=== PATIENT | female | born 1940 | race Native Hawaiian/Other Pacific Islander ===

== ENCOUNTER 2017-12-08 19:26 | Emergency (ER) | payer MEDICARE, OTHER ==
[2017-12-08] MEDS ORDERED: Albuterol-Ipratrop 3 mg / 0.5 (3 ml) UD IH STA (20:13)
[2017-12-08] MEDS ORDERED: Albuterol-Ipratrop 3 mg / 0.5 (3 ml) UD ONE (20:44)
[2017-12-08 21:09] LABS: BASO # 0.1 K/uL (0.0-0.2); BASO % 0.9 % (0.0-2.0); EOS % 0.1 % (0.0-4.0); HEMOGLOBIN 14.2 g/dL (11.0-16.0); LYMPH # 1.8 K/uL (1.0-4.3); LYMPH % 13.5 % (20.0-40.0); MEAN CELL VOLUME 86.4 fL (81.0-99.0); MEAN CORPUSCULAR HEMOGLOBIN 29.4 pg (27.0-31.0); MEAN PLATELET VOLUME 7.6 fL (7.2-11.7); MONO # 1.4 K/uL (0.0-0.8); MONO % 10.6 % (0.0-10.0); NEUT # 9.9 K/uL (1.8-7.0); NEUT % 74.9 % (50.0-75.0); NRBC % 0.1 % (0.0-2.0); RBC 4.82 Mil/uL (3.80-5.20); RED CELL DISTRIBUTION WIDTH 14.1 % (11.5-14.5)
[2017-12-08 21:12] LABS: WHITE BLOOD COUNT 13.2 K/uL (4.8-10.8)
[2017-12-08 21:21] LABS: ALBUMIN 4.2 g/dL (3.5-5.0); ALT/SGPT 67 U/L (9-52); AST/SGOT 56 U/L (14-36); BLOOD UREA NITROGEN 14 mg/dL (7-17); GFR AFRICAN-AMERICAN > 60; GFR NON-AFRICAN AMERICAN > 60; SQUAMOUS EPITHIAL 8 /hpf (0-5); URINE BACTERIA RARE (<OCC); URINE BILIRUBIN NEGATIVE (NEGATIVE); URINE BLOOD 1+ (NEGATIVE); URINE CLARITY Hazy (Clear); URINE COLOR Yellow (YELLOW); URINE GLUCOSE (UA) NORMAL (Normal); URINE LEUKOCYTE ESTERASE TRACE Leu/uL (Negative); URINE NITRATE NEGATIVE (NEGATIVE); URINE PROTEIN 1+ mg/dL (NEGATIVE); URINE UROBILINOGEN NORMAL mg/dL (0.2-1.0)
[2017-12-08 21:37] LABS: FREE T4 0.77 ng/dL (0.78-2.19)
[2017-12-08] MEDS ORDERED: Sodium Chloride 0.9% 500 ML IV ONE (21:55)
--- NOTE | 2017-12-08 22:10 | C.PDOC ---
Time Seen by Provider: 12/08/17 20:02 Chief Complaint (Nursing): Flu-like Symptoms History Per: Patient, Family Onset/Duration Of Symptoms: Days (2) Current Symptoms Are (Timing): Still Present Associated Symptoms: Fever, Cough, Nasal Congestion Severity: Moderate Additional History Per: Prior Records Past Medical History Reviewed: Historical Data, Nursing Documentation, Vital Signs Vital Signs: Last Vital Signs Temp 99.9 F H 12/08/17 19:46 Pulse 91 H 12/08/17 19:46 Resp 16 12/08/17 19:46 BP 155/70 H 12/08/17 19:46 Pulse Ox 94 L 12/08/17 19:46 - Medical History PMH: Diabetes, Hypercholesterolemia, Hyperthyroidism Family History: States: Unknown Family Hx - Social History Hx Tobacco Use: No Hx Alcohol Use: No Hx Substance Use: No - Immunization History Hx Tetanus Toxoid Vaccination: Yes Hx Influenza Vaccination: Yes Hx Pneumococcal Vaccination: Yes Review Of Systems Except As Marked, All Systems Reviewed And Found Negative. Constitutional: Positive for: Fever, Malaise ENT: Positive for: Nose Congestion, Other (Decreased hearing from left ear for years). Negative for: Ear Pain, Ear Discharge Cardiovascular: Negative for: Chest Pain Respiratory: Positive for: Cough. Negative for: Shortness of Breath, Hemoptysis Gastrointestinal: Negative for: Vomiting, Abdominal Pain Genitourinary: Negative for: Dysuria Musculoskeletal: Negative for: Neck Pain Skin: Negative for: Rash Neurological: Positive for: Headache. Negative for: Weakness, Numbness, Seizures, Altered Mental Status Physical Exam - Physical Exam Appears: Non-toxic, No Acute Distress Skin: Normal Color, Warm, Dry, No Rash Head: Atraumatic, Normacephalic Eye(s): bilateral: Normal Inspection, PERRL, EOMI Ear(s): Left: TM Dull (chronic abnormality of TM), Right: Normal Oral Mucosa: Moist, No Drooling, No Trismus Throat: Erythema, No Exudate, No Drooling, No Mass Neck: Normal ROM, Supple Cardiovascular: Rhythm Regular Respiratory: Normal Breath Sounds, No Accessory Muscle Use Gastrointestinal/Abdominal: Soft, No Tenderness Back: No CVA Tenderness Extremity: Normal ROM, No Pedal Edema, No Calf Tenderness Neurological/Psych: Oriented x3, Normal Speech, Normal Motor, Normal Sensation ED Course And Treatment - Laboratory Results Result Diagrams: 12/08/17 21:04 12/08/17 21:04 Interpretation Of Abnormal: Flu A positive O2 Sat by Pulse Oximetry: 96 (on RA) Pulse Ox Interpretation: Normal - Radiology CXR: Interpreted by Me, Viewed By Me CXR Interpretation: Yes: No Acute Disease Reassessment Condition: Improved Progress - Interventions Interventions:: Observation, Intravenous fluid - Medications Administered Oral: Acetaminophen, Other (Tamiflu) Inhaled nebulized: Anticholinergic, Beta-2 agonist - Data Reviewed Data Reviewed: Lab, Diagnostic imaging, Old records - Patient Status Patient status: Mostly improved - Continuity of Care Discussed patient case with:: Patient, Family-HIPPA compliant, ED Nurse, PMD - Patient Plan Patient Plan: Discharge, F/U with PCP, Continue present meds Disposition Discussed With : Gómez Johnson (PMD) Comment: He agrees with discharge home and will see pt in his office this week. Doctor Will See Patient In The: Office Counseled Patient/Family Regarding: Studies Performed, Diagnosis, Need For Followup, Rx Given - Disposition Referrals: Gómez Johnson MD [Staff Provider] - Disposition: HOME/ ROUTINE Disposition Time: 22:13 Condition: IMPROVED Additional Instructions: Follow up with your doctor this week. Return to the ER if you develop shortness of breath, lethargy, worsening of symptoms or if you have any other concerns. Prescriptions: Acetaminophen [Tylenol Extra Strength] 2 tab PO Q6 PRN #30 tablet PRN Reason: Fever >100.4 F Albuterol HFA [Ventolin HFA 90 mcg/actuation (8 g)] 2 puff IH Q4 PRN #1 unit PRN Reason: Cough And Congestion Oseltamivir [Tamiflu] 75 mg PO BID #10 cap Instructions: Flu, Adult (DC) Forms: [facility] ([facility]) - Clinical Impression Clinical Impression: Influenza A
[2017-12-08 22:13] VITALS: O2SAT 96
[2017-12-08 23:40] VITALS: BP 140/70; PULSE 88; RESP 18; TEMP 98.9
--- NOTE | 2017-12-09 08:24 | RAD ---
HISTORY: Cough COMPARISON: No prior. TECHNIQUE: Chest PA and lateral FINDINGS: LUNGS: Small bibasilar opacities are noted more prominent on the left may represent atelectasis. The possibility of pneumonia at the left lower lobe is not totally excluded. PLEURA: No significant pleural effusion identified. No pneumothorax apparent. CARDIOVASCULAR: Normal. OSSEOUS STRUCTURES: No significant abnormalities. VISUALIZED UPPER ABDOMEN: Normal. OTHER FINDINGS: None. IMPRESSION: Small bibasilar opacities larger on the left. Findings may represent atelectasis or pneumonia.
--- NOTE | 2017-12-10 22:05 | CARD ---
APPROVED REPORT EKG Measurement Heart [id number] ID [id number] <Conclusion> Normal sinus rhythm Normal ECG
== END 2017-12-08 23:37 | disposition home or self-care (01) ==
LOC: C.ER 19:26
DX: J09.X2 Influenza due to identified novel influenza A virus with other respiratory manifestations (principal)
CPT/HCPCS: 71046; 80053; 81001; 84439; 84443; 85025; 87804; 93005; 94640; 99285; J7040

== ENCOUNTER 2018-10-28 15:37 | Outpatient (CLI) | payer MEDICARE, OTHER | END 2018-10-28 15:38 | disposition home or self-care (01) | LOC: C.RADIC 15:37 | DX: M25.511 Pain in right shoulder (principal); M25.521 Pain in right elbow ==